=== PATIENT | male | born 1980 | race Caucasian/White ===

== ENCOUNTER 2019-11-29 02:01 | Outpatient (CLI) | payer OTHER, SELFPAY ==
[2019-11-29 18:25] LABS: SARS-CoV-2 RNA PCR Negative
== END 2019-11-29 02:02 | disposition home or self-care (01) ==
PROVIDERS: Visit Provider Internal Medicine Gastroenterology
DX: Z01.812 Encounter for preprocedural laboratory examination (principal); Z20.828 Contact with and (suspected) exposure to other viral communicable diseases
CPT/HCPCS: 87635; C9803; U0003

== ENCOUNTER 2019-12-02 01:40 | Day surgery (SDC) | payer OTHER, SELFPAY ==
[2019-11-26 08:41] VITALS: BMI 27.4
[2019-12-02 06:32] VITALS: BMI 28.3
[2019-12-02] MEDS: LACTATED RINGERS 1,000 ML 150 ML IV CONT (06:43)
--- NOTE | 2019-12-02 07:18 | P.PNAN_ITS ---
Anes - Initial Pre Proc Eval Procedure: Operation Date: 12/02/19 07:30 Proposed Procedures p Esophagogastroduodenoscopy - Robinson Cope MD Date/Time: 12/02/19 07:18 Surgeon: Robinson Cope MD Pre Op Diagnosis: heartburn, GERD Patient Data Age: 39 Gender: M Height: 5 ft 8 in Weight: 84.5 kg Allergies Allergy/AdvReac Type Severity Reaction Status Date / Time No Known Allergies Allergy Verified 12/02/19 06:29 Home Medications Medication Instructions Recorded Confirmed Type sertraline 200 mg PO DAILY 11/26/19 11/26/19 History Patient hx anesthesia problems: none Family hx anesthesia problems: none [facility] Past Medical History Medical History (Updated 12/02/19 @ 07:18 by Pako Smith MD) Anxiety GERD (gastroesophageal reflux disease) Social History Social History Smoking status: Never smoker Alcohol use details: SOCIAL Living arrangements: with family Gender identity (if verbalized by the patient): Male Spiritual care concerns: No Anes - Eval Final PreProcedure Day of Procedure 12/02/19 07:18 Patient weight: normal Heart: regular rate and rhythm Lungs: clear to auscultation Airway: Mallampati scale class III Neurological: alert and oriented Last oral intake: >/= 8 hours ASA classification: II Emergent: no Anesthetic plan: proceed Anesthesia type and monitoring: general GIVS and standard monitoring Informed Consent: The patient's anesthetic plan and its attendant risks and benefits were discussed with the patient/family/POA. Questions were solicited and answers provided to the satisfaction of the patient/family/POA.
--- NOTE | 2019-12-02 07:25 | PM.HPGS ---
History of Present Illness History of Present Illness Consent: Risks, benefits, and alternatives have been discussed and questions answered. Patient agrees to proceed with procedure. Chief complaint: heartburn, GERD Narrative: Freddy Faustin is a 39 year old W male Referred for EGD secondary to 4 month history of substernal burning chest discomfort. This is not related to meals. He denies any dysphagia odynophagia. No nocturnal symptoms. No exertional symptoms. Patient has been under increased stress. They moved recently to this area. Hand he is looking for a job. He states that relaxation does help and symptoms appear more related to stress. No nausea or vomiting. No lower GI tract symptoms. He was given a PPI this did not seem to improve his symptoms. He is on no other medications besides Zoloft. [facility] Past Medical History Medical History (Updated 12/02/19 @ 07:18 by Pako Smith MD) Anxiety GERD (gastroesophageal reflux disease) Social History Social History Smoking status: Never smoker Alcohol use details: SOCIAL Living arrangements: with family Gender identity (if verbalized by the patient): Male Spiritual care concerns: No Meds Home Medications and Allergies Home Medications Medication Instructions Recorded Confirmed Type sertraline 200 mg PO DAILY 11/26/19 11/26/19 History Allergies Allergy/AdvReac Type Severity Reaction Status Date / Time No Known Allergies Allergy Verified 12/02/19 06:29 Exam Const: Orientation/consciousness: patient oriented x3 Resp: Auscultation: clear to auscultation bilaterally Cardio: Rate: regular rate Rhythm: regular rhythm Heart sounds: no murmurs GI: GI Palp: Yes Soft to palpation, No Tenderness to palpation present (GI), Yes No hepatosplenomegaly present and No Palpable mass present Auscultation: normal bowel sounds Neuro: General: patient oriented x3 and no focal motor deficits Extrem: General: no pedal edema Assessment and Plan Additional Plan EGD for evaluation of substernal burning discomfort
[2019-12-02 07:38] VITALS: BP 94/57; PULSE 60; RESP 13; O2SAT 93
[2019-12-02 07:48] VITALS: BP 100/67; PULSE 52; RESP 12; O2SAT 99
[2019-12-02 07:58] VITALS: BP 108/62; PULSE 62; RESP 14; O2SAT 100
== END 2019-12-02 08:19 | disposition home or self-care (01) ==
PROVIDERS: Visit Provider Internal Medicine Gastroenterology
PROC: 0DJ08ZZ Inspection of Upper Intestinal Tract, Via Natural or Artificial Opening Endoscopic (ICD-10-PCS; CPT 43235; principal; 2019-12-02 07:30)
DX: R07.89 Other chest pain (principal); K21.00 Gastro-esophageal reflux disease with esophagitis, without bleeding; F41.9 Anxiety disorder, unspecified
CPT/HCPCS: 43239; 87081; 88305; J2704; J7120